=== PATIENT | male | born 1935 | race Caucasian/White ===

== ENCOUNTER → 2021-01-31 | Outpatient (CLI) | payer MEDICARE, OTHER ==
[~2021-01-31] MED LIST: KEFLEX CAP 500500 MG PO
[2021-01-31 14:06] LABS: BUN/CREATININE RATIO 16 (0-10)
[2021-02-02 13:08] LABS: CHOLESTEROL, TOTAL 140 mg/dL (100-199); HDL SIZE 9.4 nm (>=9.2); HDL-C 49 mg/dL (>39); HDL-P (TOTAL) 32.9 umol/L (>=30.5); LARGE HDL-P 5.5 umol/L (>=4.8); LARGE VLDL-P 2.1 nmol/L (<=2.7); LDL SIZE 20.3 nm (>20.5); LDL SIZE 20.3 nm (>=20.8); LDL-C 74 mg/dL (0-99); LDL-P 1085 nmol/L (<1000); LP-IR SCORE 45 (<=45); SMALL LDL-P 648 nmol/L (<=527); TRIGLYCERIDES 91 mg/dL (0-149); VLDL SIZE 47.9 nm (<=46.6)
== END ==
LOC: LAB 11:56
PROVIDERS: Emergency Medicine
DX: I12.9 Hypertensive chronic kidney disease with stage 1 through stage 4 chronic kidney disease, or unspecified chronic kidney disease (principal); E11.22 Type 2 diabetes mellitus with diabetic chronic kidney disease; N18.2 Chronic kidney disease, stage 2 (mild); E78.2 Mixed hyperlipidemia; E03.8 Other specified hypothyroidism
CPT/HCPCS: 36415; 80053; 80061; 83704

== ENCOUNTER → 2021-05-13 | Outpatient (CLI) | payer MEDICARE, OTHER ==
[2021-05-13 09:46] LABS: HEMOGLOBIN 14.7 gm/dl (14.0-17.5); RED BLOOD COUNT 4.43 M/UL (4.20-5.50)
[2021-05-14 08:15] LABS: A/G RATIO 1.8 (1.2-2.2); BILIRUBIN, TOTAL 0.6 mg/dL (0.0-1.2); CALCIUM, SERUM 9.5 mg/dL (8.6-10.2); CREATININE, SERUM 1.23 mg/dL (0.76-1.27); GLOBULIN, TOTAL 2.2 g/dL (1.5-4.5); POTASSIUM, SERUM 4.9 mmol/L (3.5-5.2); PROTEIN, TOTAL, SERUM 6.2 g/dL (6.0-8.5); TSH 2.89 uIU/mL (0.450-4.500)
[2021-05-14 11:15] LABS: CREATININE, URINE 230.8 mg/dL (Not Estab.)
[2021-05-15 11:15] LABS: CHOLESTEROL, TOTAL 199 mg/dL (100-199); HDL SIZE 8.8 nm (>=9.2); HDL-C 41 mg/dL (>39); HDL-P (TOTAL) 26.2 umol/L (>=30.5); LARGE HDL-P 4.2 umol/L (>=4.8); LARGE VLDL-P 2.1 nmol/L (<=2.7); LDL SIZE 20.6 nm (>20.5); LDL SIZE 20.6 nm (>=20.8); LDL-C 133 mg/dL (0-99); LDL-P 1829 nmol/L (<1000); LP-IR SCORE 50 (<=45); SMALL LDL-P 1090 nmol/L (<=527); TRIGLYCERIDES 137 mg/dL (0-149); VLDL SIZE 42.7 nm (<=46.6)
== END ==
LOC: LAB 09:10
PROVIDERS: Emergency Medicine
DX: I25.10 Atherosclerotic heart disease of native coronary artery without angina pectoris (principal); I10 Essential (primary) hypertension; E78.2 Mixed hyperlipidemia; E11.9 Type 2 diabetes mellitus without complications
CPT/HCPCS: 36415; 80053; 80061; 82043; 82570; 83036; 83704; 84443; 84550; 85025